=== PATIENT | female | born 1960 ===

== ENCOUNTER 2019-01-12 07:59 | Day surgery (SDC) | payer OTHER ==
[~2019-01-12 07:59] MED LIST: ATIVAN0.5 M1; ATIVAN0.5 M1 PO; GABAPENTIN400 MG PO; GABAPENTIN600 MG PO; MIRALAX12 EA PO; PERCOCET 5/3251 TAB PO; PROZAC20 MG PO; RECTICARE30 GM TP; RELAFEN; RELAFEN PO; WELLBUTRIN SR100 MG PO
== END 2019-01-12 13:35 | disposition home or self-care (01) ==
LOC: AMB-ENDOS 07:59
DX: D12.2 Benign neoplasm of ascending colon (principal); D12.4 Benign neoplasm of descending colon

== ENCOUNTER 2019-02-14 07:16 | Outpatient (CLI) | payer OTHER | END 2019-02-18 07:24 | disposition home or self-care (01) | LOC: RAD 07:16 | DX: K62.5 Hemorrhage of anus and rectum (principal); K64.2 Third degree hemorrhoids; K59.09 Other constipation ==